=== PATIENT | female | born 1995 | race Caucasian/White ===

== ENCOUNTER 2018-11-20 12:12 | Emergency (ER) | payer OTHER ==
[2018-11-20 14:11] LABS: HBSAB Concentration 1.46 mIU/mL; HIV (1/2) Antibody/Antigen Non-Reactive (NonReactive); HIV 1/2 INDEX 0.13 S/CO (<1.00); Hep B Surf AB Non-Reactive (NonReactive); Hep C IgG Ab Non-Reactive (NonReactive); Hep C Index 0.15 S/CO (0-0.79)
[2018-11-20] MEDS ORDERED: Emtricitabine/Tenofovir 200-300 MG TAB PO SCH (15:00)
[2018-11-20] MEDS ORDERED: Raltegravir Potassium 400 MG TAB PO SCH (15:00)
== END 2018-11-20 15:43 | disposition home or self-care (01) ==
LOC: ERS 12:12
DX: Z20.2 Contact with and (suspected) exposure to infections with a predominantly sexual mode of transmission (principal)
CPT/HCPCS: 86706; 86803; 87389; 99283